=== PATIENT | male | born 1970 | race Caucasian/White ===

== ENCOUNTER 2020-05-30 09:08 | Emergency (ER) | payer OTHER ==
[~2020-05-30] VITALS: Ht 180.3 cm; Wt 99.8 kg
[2020-05-30] MEDS ORDERED: FLOMAX0.4 MG PO (10:41)
== END 2020-05-30 10:56 | disposition home or self-care (01) ==
LOC: ED 09:08
DX: N13.2 Hydronephrosis with renal and ureteral calculous obstruction (principal); Z88.0 Allergy status to penicillin
CPT/HCPCS: 74176; 80048; 81001; 85025; 96374; 99284-25; J1885